=== PATIENT | male | born 1965 | race Caucasian/White ===

== ENCOUNTER 2018-12-05 05:27 | Inpatient (IN) | payer OTHER ==
[~2018-12-05] VITALS: Ht 177.8 cm; Wt 78.6 kg
[2018-12-05] MEDS ORDERED: LISINOPRIL10 MG PO (05:47)
[2018-12-05] MEDS ORDERED: CLOPIDOGREL75 MG PO (05:48)
[2018-12-05] MEDS ORDERED: AMITRIPTYLINE H75 MG PO (05:49)
[2018-12-05] MEDS ORDERED: CITALOPRAM HBR10 MG PO (05:49)
[2018-12-05] MEDS ORDERED: ASPIRIN325 MG PO (06:06)
--- NOTE | 2018-12-05 09:44 | NUR ---
PATEINT IN ROOM WITH ENERGY MANAGER, IN ROOM VISITING, PHYSICAL THERAPY IS READY TO WORK WITH HIM
--- NOTE | 2018-12-05 09:58 | NUR ---
PT TO FLOOR FROM ER AT 0950 VIA STRETCHER, ACCOMPANIED BY ENIO CONTRERAS. PT VERY DIFFICULT TO AROUSE, BUT DID AROUSE ENOUGH TO MOVE TO BED, THEN RIGHT BACK TO SLEEP AND DIFFICULT TO AROUSE. PT WHISTLED FOR "JAMAL" "SOME OTHER DOG" WHEN TRANSFERING FROM STETCHER TO BED. PT UNABLE TO AROUSE ENOUGH TO ANSWER QUESTIONS AT THIS TIME.
--- NOTE | 2018-12-05 10:21 | NUR ---
PT VERY DIFFICULT TO AROUSE, ATTEMPTED TO DO ADMISSION VACCINE/MDRO AND ADMISSION HX ADULT, BUT PT UNABLE TO ANSWER QUESTIONS AT THIS TIME. AROUSES TO LOUD VERBAL STIMULI FOR SHORT PERIOD, THEN BEGINS MUMBLING MOSTLY INCOHERENT WORDS IN ANSWER TO QUESTIONS, THEN FALLS BACK TO SLEEP. WILL ATTEMPT THESE ASSESSMENTS WHEN PT MORE AROUSABLE.
--- NOTE | 2018-12-05 11:40 | NUR ---
PT REMAINS VERY OBTUNDED, AROUSES FOR BREIF PERIODS AFTER VERBAL CUES AND TOUCH. ANSWERING YES AND NO, WHEN ASKED WHERE HE IS HE STATED "IN THE BACK OF A BUS". CIWA SCORE 13. DENIED HALLUCINATIONS AT THIS TIME.
--- NOTE | 2018-12-05 12:24 | EKG ---
[facility] [address] [facility] [place] [id number] Signed Normal sinus rhythm Normal ECG No previous ECGs available Confirmed by PADMINI COBB DO ([id number]) on 12/05/2018 12:24:19 PM Electronically Signed By: PADMINI COBB DO 12/05/18 1224 PATIENT NAME: SHAWNA LAWSON Electrocardiogram DATE OF : 63 PHYSICIAN: PADMINI COBB DO REPORT #: [id number] REPORT IS CONFIDENTIAL AND NOT TO BE RELEASED WITHOUT AUTHORIZATION
--- NOTE | 2018-12-05 12:51 | NUR ---
PT REMAINS VERY DROWSY/OBTUNDED, DOES AROUSE FOR BRIEF PERIODS OF TIME WITH VERBAL CUES AND TOUCH TO ANSWER YES OR NO. DOES NOT ANSWER SOME QUESTIONS, JUST MUMBLES UNINTELEGIBLY. CIWA SCORE 11.
--- NOTE | 2018-12-05 13:42 | NUR ---
PT IN BED, AROUSED TO VERBAL CUES. PT STILL VERY DROWSY, BUT MORE ORIENTED. DENIED KNOWING TODAYS DATE, WAS ABLE TO STATE THAT WE ARE IN [place], AT THE HOSPITAL. DENIED VISUAL OR AUDITORY HALLUCINATIONS AT THIS TIME. REPORTED MILD NAUSEA, HAS MILD TREMORS. CIWA SCORE 11.
--- NOTE | 2018-12-05 14:34 | NUR ---
IN TO ATTEMPT PTS INITIAL CASE MANAGEMENT ASSESSMENT. PT SLEEPING, WAKES TO NURSE VOICE. PT ABLE TO ANSWER SOME QUESTIONS, BUT NOT ALL. PT WILLING TO ANSWER QUESTIONS WHEN AWAKE.
--- NOTE | 2018-12-05 14:54 | NUR ---
PT RESTING IN SEMIFOWLERS POSITION IN BED, ALERT TO VOICE. PT DISORIENTED TO DATE, PLACE AND TIME. ASSESSMENT COMPLETED. CALL LIGHT AND H2O IN REACH. PT TAKES PO MEDICATIONS. IV NS CONTINUES TO INFUSE AT PRESCRIBED RATE.
--- NOTE | 2018-12-05 15:20 | NUR ---
GAVE PT ALCOHOL WITHDRAWL SYNDROME EDUCATION PRINTED MATERIAL. PT STATED THAT HE WOULD LOOK AT IT IN A "LITTLE WHILE".
--- NOTE | 2018-12-05 16:00 | NUR ---
PT RESTING IN SEMIFOWLERS POSITION IN BED, EYES CLOSED AND RESPIRATIONS EVEN AND UNLABORED. PT OBTUNDED, AROUSES VERY BREIFLY TO VOICE AND THEN QUICKLY FALLS BACK TO SLEEP. CALL LIGHT AND H2O IN REACH. NO NEEDS OR CONCERNS VOICED. VSS.
--- NOTE | 2018-12-05 17:12 | NUR ---
PT RESTING IN SEMIFOWLERS POSITION IN BED, EYES CLOSED AND RESPIRATIONS EVEN AND UNLABORED. PT OBTUNDED, AROUSES VERY BREIFLY TO VOICE AND THEN QUICKLY FALLS BACK TO SLEEP. CALL LIGHT AND H2O IN REACH. NO NEEDS OR CONCERNS VOICED. VSS. DINNER ARRIVED BUT PT CONTINUES TO REST AT THIS TIME. PT REMAINS IN VIEW OF NURSING STATION WITH BED ALARM ON.
--- NOTE | 2018-12-05 18:36 | NUR ---
PT SITTING UP IN BED EATING DINNER. PT ATE 100% OF DINNER. DENIES NAUSEA, PAIN OR SOB. PT WATCHING TV AND ASKS FOR REMOTE AND TV GUIDE. PT ASKS WHY HE IS HERE. WHEN ASKED WHERE HE WAS PT STATES "[place]" PT REORIENTED TO PLACE SITUATION AND DATE. CALL LIGHT AND H2O IN REACH. PT DENIES FURTHER NEEDS. STATES "WHEN I AM DISCHARGED CAN I PLEASE GO BACK TO [facility]"?
--- NOTE | 2018-12-05 19:27 | NUR ---
REPORT RECEIVED, PT RESTING IN BED, ON CPOX, O2 SAT 95%, ON RA, NO C/O SOB/CP, PT ALERT, CONVERSING WITH STAFF, PT DENIES ANY PAIN, ASKING QUESTIONS REGARDING ANXIETY MEDS, EDUCATION PROVIDED REGARDING ETOH/CIWA PROTOCOLS, PT REMAINS RESTING IN BED, NO NEEDS AT THIS TIME, BED ALARM ON. CALL LIGHT WITHIN REACH. IV FLUIDS INFUSING PER EMAR WNL.
--- NOTE | 2018-12-05 19:50 | NUR ---
ROUNDED CHARGE. NUSRAT STEEN PRESENT IN ROOM. PATIENT PROVIDED WITH WARM BLANKET PER REQUEST. PATIENT DENIES ANY COMMENTS, QUESTIONS, OR CONCERNS. NO NEEDS NOTED. CALL LIGHT IN REACH.
--- NOTE | 2018-12-05 20:28 | NUR ---
PT'S CIWA SCORE OF 8, PT C/O MILD NAUSEA, MODERATE TREMOR NOTED IN BILATERAL HANDS, PT C/O MILD HEADACHE WELL MILD ITCHING, SEE CIWA ASSESSMENT. PT GIVEN PO VALIUM PER EMAR, PT TOLERATED WELL. PT ALSO GIVEN PRN ZOFRAN RELATED TO NAUSEA, EVENING MEDS ADMINISTERED, NICOTINE PATCH REMOVED FROM RIGHT SHOULDER. PT IS AOX4, ASSESSMENT COMPLETE, PT ON CPOX, O2 SAT 94% ON RA, NO C/O SOB/CP, PT DENIES ANY NEEDS AT THIS TIME, IV FLUIDS INFUSING PER EMAR WNL. CALL LIGHT WITHIN REACH. BED ALARM ON.
--- NOTE | 2018-12-05 21:21 | NUR ---
CALL LIGHT ANSWERED. PATIENT WANTS HIS URINAL. PATIENT ASKED FOR SNACK. YANIRA CRACKERS AND CHOCOLATE PUDDING GIVEN. URINAL EMPTIED.
--- NOTE | 2018-12-05 21:50 | NUR ---
PT'S CIWA SCORE OF 2, PT'S TREMOR HAS DECREASED, PT DENIES ANY NAUSEA AT THIS TIME, VSS, PT REMAINS RESTING IN BED, CPOX ON, O2 SAT 94% ON RA. CEREAL PROVIDED PER PT'S REQUEST. NO OTHER NEEDS AT THIS TIME, WILL CONTINUE TO MONITOR.
--- NOTE | 2018-12-05 22:56 | NUR ---
PT NOTED TO BE HAVING AUDITORY AND VISUAL HALLUCINATIONS, PT TALKING TO SELF, PT STATING HE JUST HAD A "VISITOR", CIWA SCORE OF 14, PT GIVEN PRN VALIUM PER EMAR, PT ALSO NOTED TO HAVE O2 SAT OF 93% ON RA, PT PLACED ON 1LNC, PT REMAINS APPROPRIATE, RESTING IN BED, BED ALARM ON, CALL LIGHT WITHIN REACH. FALL PRECAUTIONS IN PLACE. IV FLUIDS INFUSING PER EMAR WNL.
--- NOTE | 2018-12-05 23:50 | NUR ---
PT RESTING IN BED, EYES CLOSED, BREATHS EVEN, UNLABORED, ON 1LNC, O2 SAT 95%, HR 70'S, NO SIGNS OF AGITATION OR DISTRESS. CALL LIGHT WITHIN REACH. FALL PRECACUTIONS IN PLACE. IV FLUIDS INFUSING PER EMAR WNL. BED ALARM ON.
--- NOTE | 2018-12-06 02:58 | NUR ---
PT AWAKE. VSS. CIWA 2. PT FALLS BACK TO SLEEP EASILY. CALL LIGHT WITHIN REACH.
--- NOTE | 2018-12-06 03:35 | NUR ---
PT RESTING IN BED, EYES CLOSED, ON 1LNC, CPOX ON, O2 SAT 95%, BREATHS EVEN, UNLABORED, NO SIGNS OF AGITATION OR DISTRESS, CALL LIGHT WITHIN REACH. BED ALARM ON. IV FLUIDS INFUSING PER EMAR WNL.
--- NOTE | 2018-12-06 05:24 | NUR ---
AWOKE PT TO COMPLETE CIWA. CIWA 5.VSS. PT USED URINAL TO VOID. ASSESSMENT COMPLETED. CALL LIGHT WITHIN REACH.
--- NOTE | 2018-12-06 05:43 | NUR ---
PT SLEPT MOST OF SHIFT. EASY TO WAKE. ALERT TO PERSON. APPROPRIATE INTERACTIONS. CIWA Q2 THIS SHIFT.VALIUM X2 RELATED TO CIWA > 8. VSS. 1LPM NC. CPOX IN USE. PT VOIDING IN URINAL, UO-QS, NO COMPLAINTS OF PAIN, PT HAS NOT BEEN OUT OF BED TO EVALUATE GAIT. TOLERATING DIET WELL. ZOFRAN X1. NO EMEISIS. BED ALARM ON, CALL WITHIN REACH.
--- NOTE | 2018-12-06 07:33 | NUR ---
PT RESTING IN BED EYES CLOSED RR EVEN AT 18 BPM NO DISTRESS. PT APPEARS TO BE SLEEPING AT THIS TIME. BEDSIDE REPORT
--- NOTE | 2018-12-06 07:56 | NUR ---
PATIENT SITTING STRAIGHT UP IN BED EATING BREAKFAST. FRESH ICE WATER GIVEN . CALL BUTTON IN REACH. PATIENT STATES THAT HE WOULD LIKE TO TAKE A SHOWER LATER TODAY. BLINDS OPENED. BED ALARM ON. NO OTHER NEEDS AT THIS TIME.
--- NOTE | 2018-12-06 08:11 | NUR ---
PT ALERT AND ORIENTED, REPORTS HE IS FEELING BETTER THIS AM, HE SAID "I WAS CONFUSED LAST NIGHT"
--- NOTE | 2018-12-06 08:35 | NUR ---
ADMINISTERED MORNING MEDICATIONS, PATIENT REPORTS " I SLEPT THE BEST I HAVE SINCE I HAVE BEEN HERE."
[2018-12-06] MEDS ORDERED: HYDROXYZINE HCL10 MG PO (10:19)
[2018-12-06] MEDS ORDERED: DAILY MULTIPLE1 EACH PO (10:20)
--- NOTE | 2018-12-06 10:23 | NUR ---
Medication reconciliation completed. Patient states he takes a multivitamin daily. Also states he has a prescrition for hydroxyzine 10 mg po tid as neesded for anxiety.
--- NOTE | 2018-12-06 10:45 | NUR ---
PT RESTING IN BED EYES CLOSED RR EVEN 18 BPM. NO DISTRESS NOTED NO SIMPTOMS OF WITHDRAWL NOTED, PT ALERT TO NAME, REPOSITIONED THEN WENT BACK TO SLEEP.
--- NOTE | 2018-12-06 11:21 | NUR ---
PT RESTING QUIETLY IN BED EYES CLOSED RR EVEN 18 BPM.
[2018-12-06] MEDS ORDERED: CELEXA20 MG PO (12:27)
[2018-12-06] MEDS ORDERED: HYDROXYZINE HCL50 MG PO (12:28)
--- NOTE | 2018-12-06 12:30 | NUR ---
PT RESTING IN BED ALERT TO NAME. PT ORIENTED AND COOPERATIVE, NO TREMORS, OR OTHER SYMPTOMS OF ETOH WITHDRAWL AT THIS TIME.
--- NOTE | 2018-12-06 14:27 | NUR ---
PT GOING THRU ALCOHOL WITHDRAWL. LIVES IN [place], THINKS THAT MAYBE A CHANGE OF SCENERY WILL HELP. VISITED ABOUT HOW A CHANGE WON'T MATTER IF THE ROOT CAUSE ISN'T ADDRESSED-HE RELUCTANTLY AGREED. PT VERY PLEASANT, SAYS HE HAS NO FAMILY, BUT GOOD FRIENDS. HE ADMITTED THAT ALCOHOL HAD TAKEN AWAY THE THINGS OF THIS LIFE AWAY. HE HAS A SPONSOR, BUT DOESN'T SEEM TO HELP LATELY. M[place]OT ATTENDED AN AA MTG. PT REQUESTED PRAYER, GAVE HIM COPIES OF G.POST. WILL FOLLOW NEEDED
--- NOTE | 2018-12-06 15:41 | NUR ---
PT RESTING IN BED ALERT TO NAME, ORIENTED, CIWA 0 AT THIS TIME
--- NOTE | 2018-12-06 16:36 | NUR ---
PT HAS CIWA 0 THIS AFTERNOON, NO TREMORS OR OTHER SYMPTOMS OF WITHDRAWL. HE HAS NOT YET BEEN OUT OF BED, HE HAS BEEN DROWSY BUT ALERT TO NAME HE HAS BEEN ORIENTED OVER THIS SHIFT. GOOD APPETITE, VOIDING QUANTITY SUFFICIENT. PT HAS BEEN APPROPRIATE AND COOPERATIVE WITH CARE. NO REPORT OF PAIN, POSSIBLE DISCHARGE TOMORROW.
--- NOTE | 2018-12-06 19:25 | NUR ---
CA REPORT RECIEVED FROM SEDRICK. PT AWAKE IN BED, ALERT, CLEAR SPEECH, WATCHING TV. DENIES ANY OTHER NEEDS AT THIS TIME. CALL LIGHT WITHIN REACH.
--- NOTE | 2018-12-06 20:28 | NUR ---
1 SBA FROM BATHROOM TO BED. CALL LIGHT IN REACH. NO OTHER NEEDS AT THIS TIME.
--- NOTE | 2018-12-06 21:02 | NUR ---
PT VS AND ASSESSMENT COMPLETED. EVENING MEDICATIONS ADMINISTERED PER EMAR. VSS. AAO X3. CIWA 5. PT ASKED FOR AND GIVEN CEREAL. UP TO BATHROOM AND BACK TO BED SBA. DENIES PAIN. NO OTHER NEEDS AT THIS TIME. CALL LIGHT WITHIN REACH.
--- NOTE | 2018-12-07 00:40 | NUR ---
PT RESTING IN BED WITH EYES CLOSED. EASY TO WAKE. RR 16. VSS. CIWA 5. NO INTERVENTIONS NEEDED PER CIWA. PT DENIES HEADACHE/PAIN. NO OTHER NEEDS AT THIS TIME . PT GIVEN A WARM BLANKET, LOW LIGHT ENVIRONEMT, CALL LIGHT WITHIN REACH.
--- NOTE | 2018-12-07 02:40 | NUR ---
PT SLEEPING, RR 16. CALL LIGHT WITHIN REACH.
--- NOTE | 2018-12-07 04:47 | NUR ---
PT WOKE TO VOICE. VSS, ASSESSMENT COMPLETED. IV CLEAN, DRY, INTACT. CIWA 3. AAO X3. I & O COMPLETED. PT REQUESTS BLINDS TO BE CLOSED FURTHER TO GO BACK TO SLEEP. BLINDS CLOSED. CALL LIGHT WITHIN REACH AND PT REMINDED TO USE THE CALL LIGHT TO GET UP OR ANY OTHER NEEDS.
--- NOTE | 2018-12-07 05:47 | NUR ---
PT SLEPT THROUGH THE NIGHT EXCEPT RN INTERUPTIONS FOR CARES. PT WOKE EASILY TO NAME. VSS. AAO X4. LAST CIWA AT 0440 WAS 3 WITH SLIGHT TREMORS AND ANXIETY. CIWA Q4H. UO WNL. SALINE LOCK IN RIGHT HAND, FLUSHED. SPO2 WNL.
--- NOTE | 2018-12-07 07:25 | NUR ---
RECIEVED REPORT AT [facility] PT SLEEPING SOUNDLY. REPORT GIVEN BY ENIO GILBERT AND ENIO ESCAMILLA. WHITE BOARD UPDATED. BED ALARM ON.
--- NOTE | 2018-12-07 08:43 | NUR ---
PT'S IV NO LONGER PATENT. D/C'D IV, WNL. ATTEMPTED NEW IV START X 3, UNSUCCESSFUL. ATTEMPT TO LEFT WRIST, ATTEMPT TO RIGHT FOREARM, AND ATTEMPT TO RIGHT AC. PT TOLERATED THESE WELL. WILL HAVE ANOTHER RN ATTEMPT IV START.
--- NOTE | 2018-12-07 10:11 | NUR ---
PATIENT RESTING IN BED. PATIENT REFUSED SHOWER AT THIS TIME HE STATES THAT HE'S STILL TIRED. PATIENT HANDS ARE SHAKY RN NOTIFIED. BED ALARM ON. CALL BUTTON IN REACH. FRESH ICE WATER GIVEN. NO OTHER NEEDS AT THIS TIME.
[2018-12-07] MEDS ORDERED: NICOTINE LOZENGE2 MG BUCCAL (11:26)
--- NOTE | 2018-12-07 11:48 | NUR ---
PT IN BED, RESTING QUIETLY. DENIED NEEDS AT THIS TIME. REPORTED SLIGHT NAUSEA, THAT WAS IMPROVED SOMEWHAT BY PRN ONDONSETRON.
--- NOTE | 2018-12-07 11:57 | NUR ---
FAXED CHART NOTES FACE SHEET AND DC SUMMARY AND PACKET TO [facility]. SPOKE WITH NURSE MCNEIL AND SHE STATED THEY WILL TAKE THE PT. THEY WOULD LIKE US TO SEND NEW MEDS WITH PT. RECEIVED FAX CONFIRMATION.
--- NOTE | 2018-12-07 12:02 | NUR ---
THIS RN ASKED PT WHERE HIS HOME MEDICATIONS ARE LOCATED, PT RESPONDED THAT THEY ARE AT THE [facility] THAT HE IS RETURNING TO.
== END 2018-12-07 12:27 | disposition home or self-care (01) | DRG 896 ==
LOC: ED 05:27 → MS 05:29
PROVIDERS: ADMIT Student in an Organized Health Care Education/Training Program
DX: F10.231 Alcohol dependence with withdrawal delirium (principal); G93.41 Metabolic encephalopathy; I10 Essential (primary) hypertension; F17.200 Nicotine dependence, unspecified, uncomplicated; Z87.820 Personal history of traumatic brain injury; Z79.02 Long term (current) use of antithrombotics/antiplatelets; Z79.82 Long term (current) use of aspirin; Z79.899 Other long term (current) drug therapy; Z95.820 Peripheral vascular angioplasty status with implants and grafts
CPT/HCPCS: 36415; 70450; 73560; 80048; 80053; 81001; 82803; 83735; 84100; 84425; 85025; 85610; 85730; 93005; 93010; 94760; 94762; 96374; 99291; 99406; G0480; J1650; J2060; J2405; J3360; J3411; J7030; J7060; J7121